=== PATIENT | female | born 1990 | race Caucasian/White ===

== ENCOUNTER 2017-04-07 12:23 | Emergency (ER) | payer OTHER ==
[2017-04-07 12:47] VITALS: RESP 20; TEMP 99; O2SAT 99
[2017-04-07 14:14] LABS: BASOPHILS % (AUTO) 1 % (0-3); EOSINOPHILS % (AUTO) 1 % (0-9); HEMATOCRIT 43 % (35-47); MEAN CORPUSCULAR HGB CONC 34.7 gm/dl (32.0-36.0); MEAN CORPUSCULAR VOLUME 90 fL (81-99); MONOCYTES % (AUTO) 3.5 % (0-12); NEUTROPHILS % (AUTO) 68.1 % (37-80)
[2017-04-07 14:17] VITALS: BP 137/89; PULSE 74
[2017-04-07 14:58] LABS: POTASSIUM 4.1 mMol/L (3.5-5.1)
[2017-04-07 17:03] LABS: ALBUMIN 3.8 gm/dl (3.4-5.0); CALCIUM 8.7 mg/dl (8.5-10.1); THYROID STIMULATING HORMONE 0.789 uIU/ml (0.358-3.740)
== END 2017-04-07 14:34 | disposition home or self-care (01) | DRG 880 ==
LOC: ED 12:23
DX: F41.9 Anxiety disorder, unspecified (principal); B18.2 Chronic viral hepatitis C; F11.23 Opioid dependence with withdrawal
CPT/HCPCS: 80053; 84443; 85025; 99282

== ENCOUNTER 2017-09-18 20:53 | Emergency (ER) | payer OTHER ==
[2017-09-18 21:35] VITALS: BP 114/78; PULSE 80; RESP 18; TEMP 98.9; O2SAT 98
== END 2017-09-18 22:20 | disposition left against medical advice (07) | DRG 951 ==
LOC: ED 20:53
DX: Z53.21 Procedure and treatment not carried out due to patient leaving prior to being seen by health care provider (principal)
CPT/HCPCS: 99282